=== PATIENT | female | born 1975 ===

== ENCOUNTER 2016-11-15 06:52 | Day surgery (SDC) | payer BC ==
[2016-11-15 07:46] VITALS: RESP 18
[2016-11-15 07:57] VITALS: BMI 23.9
[2016-11-15] MEDS ORDERED: Lactated Ringer's 1,000 ML IV ONE (09:23)
[2016-11-15] MEDS: HYDROmorphone 0.5 mg/0.5 ml ISec IVP PRN ×2 (10:25→10:40)
[2016-11-15] MEDS ORDERED: Oxycodone/Acetaminophen 5/325 mg Tab PO PRN ×2 (10:26)
[2016-11-15] MEDS ORDERED: Lactated Ringer's 1,000 ML IV SCH (10:26)
[2016-11-15] MEDS ORDERED: Oxycodone/Acetaminophen 5/325 mg Tab PO ONE (13:15)
--- NOTE | 2016-11-15 15:07 | OP ---
PROCEDURE DATE: 11/15/2016 SURGEON: Donnell Reid M.D. FORECLOSURE FIELD INSPECTOR: Sherri, a resident. PREOPERATIVE DIAGNOSIS: Displaced right fifth metacarpal shaft fracture. POSTOPERATIVE DIAGNOSIS: Displaced right fifth metacarpal shaft fracture. PROCEDURES: Right fifth metacarpal shaft fracture. Closed reduction and percutaneous pinning. ANESTHESIA: General. ESTIMATED BLOOD LOSS: Zero. COMPLICATIONS: None. DISPOSITION: Stable to recovery room. INDICATIONS: A 41-year-old female who injured her hand and was diagnosed with a displaced fifth meta carpal shaft fracture which required surgical intervention. Risks and benefits of the surgery were e xplained. The risks included, but not limited to, bleeding, infection, tendon, nerve or vessel injur y, malrotation, instability, malunion, nonunion, or possible need for additional surgery in the futur e. The patient understood the above risks and elected to proceed. DESCRIPTION OF PROCEDURE: The patient was brought to the operating room and placed supine on the ope rating room table. After general anesthesia and prophylactic antibiotics were given, a nonsterile to [place] was placed on the right upper extremity. The right upper extremity was then prepped and zulma ped in a standard surgical fashion. Timeout was performed. Under fluoroscopy, the fracture was evaluated and closed reduction was performed. Closed reduction i ncluded traction and volar directed force on the fracture apex. Reduction confirmed anatomic positio china of the fracture and confirmed on multiple fluoroscopic planes. After this, two 4.5 mm Nanda wires were placed across the fifth and fourth metacarpal head, and another one across the fifth and fourth base of the metacarpal shafts. This construct was stable contra and internal fixation of the fracture. Again, fluoroscopy confirmed anatomic alignment of the fracture site. Pins were cut short outside the skin and pin caps were placed. The wound was then repaired with Xeroform clings and 4 x 4s. A dorsal blocking plaster splint was placed. The patient tolerated the procedure well, and was returned to recovery room in excellent condition. Donnell Reid M.D. cc: [id number] TT: 11/15/2016 15:06:52 caprice
[2016-11-15 15:22] VITALS: BP 116/58; PULSE 69; TEMP 98; O2SAT 98
== END 2016-11-15 15:30 | disposition home or self-care (01) ==
LOC: H.OPSURG 06:52
PROVIDERS: ATTEND Orthopaedic Surgery
DX: S62.326A Displaced fracture of shaft of fifth metacarpal bone, right hand, initial encounter for closed fracture (principal); D57.00 Hb-SS disease with crisis, unspecified; X58.XXXA Exposure to other specified factors, initial encounter
CPT/HCPCS: 26605; C1713; J0690; J7030; J7120